=== PATIENT | male | born 1960 | race Two or more races ===

== ENCOUNTER 2022-03-21 05:57 | Outpatient (REF) | payer MEDICAID, SELFPAY | END 2022-03-21 05:58 | disposition home or self-care (01) | LOC: HO.HOSX 05:57 | PROVIDERS: Visit Provider Physician Assistant | DX: Z13.89 Encounter for screening for other disorder (principal) ==

== ENCOUNTER 2022-06-12 09:03 | Outpatient (REF) | payer MEDICAID, SELFPAY | END 2022-06-12 09:04 | disposition home or self-care (01) | LOC: HO.HOSX 09:03 | PROVIDERS: Visit Provider Physician Assistant | DX: Z13.89 Encounter for screening for other disorder (principal) ==

== ENCOUNTER 2025-01-06 14:54 | Outpatient (REF) | payer MEDICAID, SELFPAY ==
[2025-01-06 15:57] LABS: MANUAL DIFF FLAG NO
[2025-01-06 15:59] LABS: Hematocrit 45.7 % (42.0-52.0); Hemoglobin 15.1 g/dl (14.0-18.0); Imm Gran Abs Auto 0.04 X10*3/uL (0.00-0.03); Imm Gran Pct Auto 0.4 % (0.0-0.4); Lymphocytes Absolute Auto 2.5 X10*3/uL (1.2-4.9); Mean Corpuscular HGB Conc 33.0 g/dl (31.0-36.0); Mean Corpuscular Hemoglobin 31.2 pg (27.0-33.0); Mean Corpuscular Volume 94.4 fL (80.0-98.0); NRBC Abs Auto 0.000 X10*3/uL (0.0-0.012); NRBC Pct Auto 0.0 /100WBC (0.0-0.2); Platelet Count 100 X10*3/uL (160-400); Red Blood Count 4.84 X10*6/uL (4.60-5.80); White Blood Count 10.3 X10*3/uL (4.8-10.8)
[2025-01-06 16:21] LABS: Alanine Aminotransferase 14 U/L (0-40); Albumin Level 3.7 g/dL (3.5-5.0); Alkaline Phosphatase 96 U/L (39-117); Anion Gap 11 (12-20); Aspartate Amino Transferase 28 U/L (5-37); Blood Urea Nitrogen 14 mg/dL (9-16); Calcium 9.0 mg/dL (8.4-10.2); Carbon Dioxide 24 mmol/L (22-29); Chloride 108 mmol/L (96-108); Cholesterol 121 mg/dL (<200); Estimated Glomerular Filt Rate > 60; HDL Cholesterol 40 mg/dL (>40); Potassium 4.6 mmol/L (3.3-5.1); Sodium 138 mmol/L (135-145); Total Protein 7.7 g/dL (6.5-8.0); Triglycerides 45 mg/dL (<150)
--- OUTSIDE RECORDS SUMMARY | 2025-01-06 20:23 | XMS_ITS | Encounter Summary ---
Author Organization [facility] Address [address] [place] [address] Phone Care Team Providers Care Disability Coordinator Name Role Phone Unknown, Unknown Primary Care Provider Jere Nelson MD Primary Care Prov ider Encounter Details Date Type Department Care Team (Late st Contact Info) Description 08/01/2017 Procedure Pass [facility] [address] [place] [address] Social History Tobacco Use Types Packs/Day Years Used Date Smoking Tobacco: Light Smoker Smokeless Tobacco: Never Alcohol Use Standard Drinks/Week Comments No 0 (1 standard drink = 0.6 oz pur e alcohol) Sex and Gender Information Value Date Recorded Sex Assigned at Not on file Legal Sex Male 3:57 PM EDT Gender Identity Not on file Sexual Orientation Not on file documented as of this encounter Plan of Treatment Not on file documented as of this encounter Visit Diagnoses Not on filedocumented in this encounter Care Teams Disability Coordinator Relationship Specialty Start Date End Date Unknown, Unknown, PCP - General 06/09/17 02/27/22 Jere Pope MD [address] [place] [address] PCP - General Internal Medicine 02/28/22 documented as of this encounter Additional Source Comments The information contained in this document represents components of the legal health record. It is not the complete legal health record.[facility]
--- OUTSIDE RECORDS SUMMARY | 2025-01-06 20:23 | XMS_ITS | Encounter Summary ---
Author Organization [facility] Address [address] [place] [address] Phone Care Team Providers Care Glove Turner And Former Automatic Name Role Phone Unknown, Unknown Primary Care Provider Jere Nelson MD Primary Care Prov ider Encounter Details Date Type Department Care Team (Late st Contact Info) Description 09/12/2017 Procedure Pass [facility] [address] [place] [address] Social History Tobacco Use Types Packs/Day Years [...] on filedocumented in this encounter Care Teams Glove Turner And Former Automatic Relationship Specialty Start Date End Date Unknown, Unknown, PCP - General 06/09/17 02/27/22 Jere Pope MD [address] [place] [address] PCP - General Internal Medicine 02/28/22 documented as of this encounter Additional Source Comments The information contained in this document represents components of the legal health record. It is not the complete legal health record.[facility]
--- OUTSIDE RECORDS SUMMARY | 2025-01-06 20:23 | XMS_ITS | Data Portability ---
Author Organization [facility], Main Office Address [address] [place] [address] Care Team Providers Care Electric Meter Tester Helper Name Role Phone [facility] OTHER [facility] Primary Care Provider Assessment No assessment recorded. Plan of Treatment Reminders Order Date Submit Date Provider Last Modified By Organization Details Last Modified Time Details Appointments None recorded. Lab None recorded. Referral None recorded. Procedures None recorded. Surgeries None recorded. Imaging None recorded. Medication Orders Suboxone 4 mg-1 mg sublingual film 2022 023 [facility], [address], [address], [place], [address], 3 15:35:46 Patient TargetsNo targets recorded. Patient InstructionsNo instructions recorded. Reason for Referral None Reported. 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 179194121 Active 2022 Brady Constantino MD [address], [address], [place], [address], [facility] 3 08:43:09 Hypertensive disorder 43162436 Active 2022 Brady Constantino MD [address], [address], [place], [address], [facility] 3 08:43:17 Recurrent falls 787428691 Active 2022 Brady Constantino MD [address], [address], [place], [address], [facility] 3 08:43:23 Gastroesophage al reflux disease without esophagitis 556457795 Active 2022 Brady Constantino MD [address], [address], [place], [address], [facility] 3 08:43:36 History of alcoholism 894549131 Active 2022 Brady Constantino MD [address], [address], [place], [address], [facility] 3 08:43:56 Peripheral vascular disease 874548954 Active 2022 Brady Constantino MD [address], [address], [place], [address], [facility] 3 08:44:02 Chronic hepatitis C 902974250 Active 2022 Brady Constantino MD [address], [address], [place], [address], [facility] 3 08:44:10 Primary insomnia 2125977 Active 2022 Brady Constantino MD [address], [address], [place], [address], [facility] 3 08:48:55 Unsheltered homelessness Active 2022 Brady Constantino MD [address], [address], [place], [address], [facility] 3 08:56:59 Tobacco user 814320702 Active 2022 Brady Constantino MD [address], [place], [address], [facility] 3 08:57:08 Problem Notes None recorded. Medical Equipment None Reported. Allergies Allergen ID Allergen Name Allergen Category Reaction Reaction Severity Criticality Documentation Date Start Date Code Code System Note Provider Name and Address Organization Details Recorded Time 59305 Product containin g penicilli n (product) medicatio n Not available Not available Not available 07/17/2022 92062 8001 SNOMED Brady Constantino MD [address], [address], [place], [address], [facility] 3 08:33:57 Medications Name Sig Start Date Stop Date Status Note LastModified by Organization Details LastModified Time Suboxone 4 mg-[address] 1 film every day by sublingual route. 2022 active Not Available Not Available Not Avai lable Vitals Date Recorded Oxygen saturation Heart rate Respiratory rate Body temperature Systolic And Diastolic Provider Name and Address Organization Details Last Updated DateTime 3 96 % 76 /min 18 /min 97.3 [degF] 134/66 mm[Hg] KIANA Restrepo [address], [address], [place], [address], [facility] [employer] 3 11:55:06 Social History Question Answer Notes LastModified by Organizat ion Details LastModified Time Tobacco Smoking Status Current Every Day Smoker Brady Constantino MD [address], [address], [place], [address], [employer] 07/17/2022 08:56:33 Do You Have An Advance Directive? No Information not available 07/17/2022 What Is Your Code Status? Full Code Information not available 07/17/2022 How Much Tobacco Do You Smoke? 0.5 PPD Information not available 07/17/2022 Sex: Unknown Functional Status Question Answer Note LastModified by Organization D etails LastModified Time What is your level of alcohol consumption? None hx ETOH Information not available 07/17/2022 Mental Status None recorded. Family History Nothing Reported Notes:N/C Medical History No medical history recorded. Immunizations Vaccine Type Date Status Note Provider Nam e and Address Organization Details Recorded Time Tdap 08/05/2016 completed Daniela leyva, [facility] [employer] 05/21/2023 11:17:13 Past Encounters Encounter ID Performer Location Encounter Start Date Encounter Closed Date Diagnosis/Indication Diagnosis SNOMED-CT Code Diagnosis ICD10 Code Diagnosis IMO Codes Diagnosis Note [id number] Brady Constantino MD [facility] on [address] [place] [address] 07/17/2022 08:33:05 07/24/2022 10:46:05 Fracture of neck of femur 4390120 S72.041D see HPIright femoral neck fracture s/p ORIFloveno x for DVT prophylaxi sfollow ortho recs and update with concernsmo nitor for pain controlgab apentin 100 mg tidPT OT Eval and treat Harmful pa ttern of use of multiple substances 727349904 F19.10 substance abuse counseling at [facility] cial work to be involved to assist with services in communityn ow onsuboxone 4-1 mg qday Hypertensive disorder 38 538285 I10 coreg 3.125 mg bidmonitor bp and need to adjust Recurrent falls 33463196 2 R29.6 see aboveunsur e of baselineth erapy to followmoni tor fall risk Gastroesop hageal reflux disease without esophagitis 062753889 K21.9 omeprazole 20 mg qdmonitor for sx relief History of alcoholism 16 4385790 F10.21 sober x 20 years by hxadded to PMH Peripheral vascular disease 319176797 I73.89 carrying dxadded to PMH Chronic hepatitis C 1283 18867 B18.2 carrying dxadded to PMHunsure of tx hx can request prior notes Primary insomnia 4755461 F51.01 temazepam 15 mg qhscontinu vianney-kit script written for ativan till available Unsheltere d homelessness 7764981867 35708 Z59.02 may be barrier to discharges ocial work to be involved Tobacco user 691909563 Z 72.0 encourage quittingni cotine replacemen t prn [id number] Brady Constantino MD [facility] on [address] [place] [address] 07/24/2022 14:18:41 07/29/2022 16:11:02 Fracture of neck of femur 8660169 S72.041D see HPIright femoral neck fracture s/p ORIFloveno x for DVT prophylaxi sfollow ortho recs and update with concernsmo nitor for pain control currently well controlled gabapentin 100 mg tidcontinu es with therapy Harmful pa ttern of use of multiple substances 562469330 F19.10 suboxone 4-1 mg qdaystable on this dosewill need to establish with facility in community prior to discharge Primary insomnia 6289455 F51.01 temazepam 15 mg qhsstable Unsheltere d homelessness 9076695813 98732 Z59.02 may be barrier to discharges ocial work to involvedse e above [id number] KIANA Restrepo [facility] [address] [place] [address] 07/29/2022 08:32:07 07/31/2022 10:53:06 Fracture of neck of femur 8597872 S72.041D right femoral neck fracture s/p ORIFloveno x 40 mg sq qd for DVT prophylaxi sketorolac 10 mg q 6 hrs prngabapen tin 100 mg tidcontinu e PT OTmonitor for pain relief, incisionf/ u with ortho Harmful pa ttern of use of multiple substances 840394754 F19.10 [facility] counseling at facilityso cial worker involved, will need services once dischargec ontinue suboxone 4-1 mg qd Hypertensive disorder 38 944786 I10 bp normalcore g 3.125 mg bidmonitor bp, adjust dose prn Recurrent falls 77316372 2 R29.6 see aboveunsur e of baselineth erapy to followmoni tor fall risk Gastroesop hageal reflux disease without esophagitis 680158692 K21.9 omeprazole 20 mg qdmonitor for sxs History of alcoholism 16 5807763 F10.21 sober x 20 years by hxadded to PMH Primary insomnia 9525779 F51.01 temazepam 15 mg qhsadd melatonin 6 mg qhsmonitor for effect Unsheltere d homelessness 6903267524 55563 Z59.02 may be barrier to discharges ocial worker involved Tobacco user 787393053 Z 72.0 encourage quitting now with hematurian icotine replacemen t prn Carmelo hematuria 86469272 5 R31.0 explained to pt that sometimes blood in urine is a symptom of bladder cancersend ing out [facility] C & Srefer to urologist once report is back [id number] Brady Constantino MD [facility] [address] [place] [address] 08/02/2022 14:16:55 08/05/2022 16:24:46 Fracture of neck of femur 5996340 S72.041D see HPIright femoral neck fracture s/p ORIFnow improved and healingWBA T, continues with therapyfol low ortho recs and update with concerns Harmful pa ttern of use of multiple substances 344168064 F19.10 suboxone 4-1 mg qdaystable on this dosewill establish with facility in community prior to discharge Unsheltere d homelessness 4650933242 97953 Z59.02 patient plan now to rent room in [place] while looking for permanent housing [id number] Brady Constantino MD [facility] on [address] [place] [address] 08/07/2022 14:00:38 08/21/2022 08:24:48 Fracture of neck of femur 5247589 S72.041D see HPIright femoral neck fracture s/p ORIFd/c lovenoxnow progressin g towards discharge on 08/09 Harmful pa ttern of use of multiple substances 087398700 F19.10 suboxone 4-1 mg q dayto establish with suboxone clinic prior to discharge Hypertensive disorder 38 921307 I10 coreg 3.125 mg bidcontinu ed Recurrent falls 46815093 2 R29.6 remind patient importance of utilizing walker Gastroesop hageal reflux disease without esophagitis 914325584 K21.9 omeprazole 20 mg qdstable Primary insomnia 0988006 F51.01 temazepam 15 mg qhscontinu ed Unsheltere d homelessness 5467682351 54405 Z59.02 now to rent room in [place] [id number] KIANA Restrepo [facility] on [address] [place] [address] 08/08/2022 08:51:51 08/21/2022 08:41:53 Fracture of neck of femur 5877102 S72.041D right femoral neck fracture s/p ORIFwalkin g independen tly with walkeroff lovenox nowf/u with ortho Harmful pa ttern of use of multiple substances 127039285 F19.10 suboxone 4-1 mg q dayfollow up with suboxone provider once pt is discharged Hypertensive disorder 38 105058 I10 coreg 3.125 mg bidmonitor bp Recurrent falls 15269824 2 R29.6 reminded patient importance of utilizing walkercont inue PT OT Gastroesop hageal reflux disease without esophagitis 118702496 K21.9 omeprazole 20 mg qdmonitor for sxs Primary insomnia 1225792 F51.01 temazepam 15 mg qhsmonitor for effect Carmelo hematuria 90198836 5 R31.0 explained to pt that sometimes blood in urine is a symptom of bladder cancerUA also showed RBCspt will need to see urologist once he is discharged [id number] Brady Constantino MD [facility] on [address] [place] [address] 08/09/2022 11:49:26 08/21/2022 08:49:40 Fracture of neck of femur 7995611 S72.041D see HPIright femoral neck fracture s/p ORIFunsafe discharge as no address given to continue servicespa tient leaving AMA Harmful pa ttern of use of multiple substances 667203435 F19.10 suboxone 4-1 mg q dayto establish with suboxone clinicwill allow to leave with 3 doses to see patient through weekend and can establish with facility Hypertensive disorder 38 045811 I10 coreg 3.125 mg bidcontinu ed Recurrent falls 55911416 2 R29.6 impulsives hould continue with out patient therapy Gastroesop hageal reflux disease without esophagitis 173051503 K21.9 omeprazole 20 mg qdcontinue d Primary insomnia 1213028 F51.01 temazepam 15 mg qhscontinu ed Unsheltere d homelessness 0083296337 56388 Z59.02 see HPI Health Concerns Section Related Observation LastModified by Organization Detai ls LastModified Time None Recorded Concern Status LastModified by Organization Details LastModified Time None Recorded Advance Directives Directive N: Payers Insurance Date Sequence Insurance Name Policy Number Policy Schultz Covered Member ID Schultz Member ID Guarantor Name 07/25/2023 1 [place]: [employer] Sheldon Short [id number] Sheldon Short Notes Date Note Type Note Provider Name and Address Organization Details Recorded Time 07/29/2022 text/html pt seen for acute visit. pt noted blood in urine, told nurse who has not observed this. pt is an active tobacco smoker and this is not the first time he has noticed blood in his urine. 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 pt also c/o insomnia. currently on temazepam 15 mg qhs. continues working with rehab, is [facility]. pt was admit from hospital presenting after fall with c/o hip pain. Imaging postive for right femoral neck fracture. Eval by ortho and underwent ORIF. Now on lovenox for DVT prophylaxis. Complicated by active polysubstance abuse, of note patient started on suboxone in hospital. KIANA Restrepo [address] [facility], [address], [place], [address], [facility] 07/29/2022 12:21:35 08/02/2022 text/html Patient is a 62 yo male resident seen for acute rounding. Patient was initially admit from hospital presenting after fall with c/o hip pain. Imaging postive for right femoral neck fracture. Eval by ortho and underwent ORIF. Now on lovenox for DVT prophylaxis. Complicated by active polysubstance abuse, of note patient started on suboxone in hospital. Continues to improve, seen by ortho today, now left hip fx healed and right femoral neck fracture healing, cleared for WBAT Brady Constantino MD [address] [facility], [address], [place], [address], [facility] 08/02/2022 14:22:02 08/07/2022 text/html Patient is a 62 yo male resident seen for acute rounding. Patient was initially admit from hospital presenting after fall with c/o hip pain. Imaging postive for right femoral neck fracture. Eval by ortho and underwent ORIF. Complicated by active polysubstance abuse, of note patient started on suboxone in hospital. Patient has done well at facility now progressing towards discharge. Patient was homeless on admission now will renting room in [place] with assist from his son. Patient ambulates with walker independently now Brady Constantino MD [address] [facility], [address], [place], [address], [facility] 08/07/2022 14:08:40 08/08/2022 text/html pt seen for acute visit. pt is doing very well, son helped him get a room in [place] which pt says is next door to his suboxone clinic. pt is walking with cane and sometimes walker both independently. saw surgeon recently and have sutures removed. pt has no c/o pain, is expected to discharge tomorrow. Pt was initially admit from hospital presenting after fall with c/o hip pain. Imaging postive for right femoral neck fracture. Eval by ortho and underwent ORIF. Complicated by active polysubstance abuse, of note patient started on suboxone in hospital. KIANA Restrepo [address] [facility], [address], [place], [address], [facility] 08/09/2022 12:15:31 08/09/2022 text/html Patient is a 62 yo male resident seen for acute rounding. Patient was initially admit from hospital presenting after fall with c/o hip pain. Imaging postive for right femoral neck fracture. Eval by ortho and underwent ORIF. Complicated by active polysubstance abuse, of note patient started on suboxone in hospital. Patient has improved with therapy and is progressing to discharge if housing in place to allow for continued services. Patient is leaving today AMA as address he provided to does not exist. Counseled to stay however patient is leaving. Will allow patient to take medications including 3 days dosing of suboxone as this is friday so patient can establish with clinic. Brady Constantino MD [address] [facility], [address], [place], [address], [facility] [employer] 08/09/2022 11:54:54
--- OUTSIDE RECORDS SUMMARY | 2025-01-06 20:23 | XMS_ITS | Encounter Summary ---
Author Organization [facility] Address [address] [place] [address] Phone Care Team Providers Care Jukebox Route Driver Name Role Phone Unknown, Unknown Primary Care Provider Jere Nelson MD Primary Care Prov ider Encounter Details Date Type Department Care Team (Late st Contact Info) Description 06/20/2017 Procedure Pass [facility] Interventional Radiology [address] [place] [address] Social History Tobacco Use Types Packs/Day Years [...] on filedocumented in this encounter Care Teams Jukebox Route Driver Relationship Specialty Start Date End Date Unknown, Unknown, PCP - General 06/09/17 02/27/22 Jere Pope MD [address] [place] [address] PCP - General Internal Medicine 02/28/22 documented as of this encounter Additional Source Comments The information contained in this document represents components of the legal health record. It is not the complete legal health record.[facility]
--- OUTSIDE RECORDS SUMMARY | 2025-01-06 20:23 | XMS_ITS | Clinical Summary ---
Author Organization [facility] Address [address] [facility] [address] [address] [place] [address] Phone Care Team Providers Care Plumbing Designer Name Role Phone Jere Pope MD Primary Care Prov ider Allergies Active Allergy Reactions Criticality Noted Date Comments Penicillins Rash Low 06/11/2017 Medications atorvastatin (LIPITOR) 20 MG tablet Take 20 mg by mouth daily. Active aspirin 81 mg chewable tablet Take 81 mg by mouth daily. Active amlodipine besylate (AMLODIPINE ORAL) Take 10 mg by mouth daily. Active amitriptyline (ELAVIL) 25 MG tablet Take 25 mg by mouth nightly. Active vorapaxar (ZONTIVITY) 2.08 mg tablet Take 2.08 mg by mouth daily. Active oxyCODONE-aceta minophen (PERCOCET) 10-325 mg per tablet Take 2 tablets by mouth every 6 (six) hours as needed. Active Social History Tobacco Use Types Packs/Day Years Used Date Smoking Tobacco: Light Smoker Smokeless Tobacco: Never Alcohol Use Standard Drinks/Week Comments No 0 (1 standard drink = 0.6 oz pur e alcohol) Education Answer Date Recorded Are you interested in more education? Not on mayco e 06/14/2022 Are you concerned about learning? Not on file 06/14/2022 No 06/14/2022 No 06/14/2022 Digital Access Answer Date Recorded No 07/16/2022 No 07/16/2022 No 07/16/2022 Reliable internet access at home? Not on file 07/16/2022 Device with a working camera? Not on file Sex and Gender Information Value Date Recorded Sex Assigned at Not on file Legal Sex Male 3:57 PM EDT Gender Identity Not on file Sexual Orientation Not on file Last Filed Vital Signs Vital Sign Reading Time Taken Comments Blood Pressure - - Pulse - - Temperature - - Respiratory Rate - - Oxygen Saturation - - Inhaled Oxygen Concentration - - Weight 112.5 kg (248 lb) 06/11/2017 11:52 AM EDT Height 170.2 cm (5' 7 ) 06/11/2017 11:52 AM EDT Body Mass Index 38.84 06/11/2017 11:52 AM EDT Plan of Treatment Health Maintenance Due Date Last Done Comments LIPID PANEL 1962 DEPRESSION SCREENING 1974 SMOKING Hx and SMOKELESS TOB ACCO SCREENING 1975 HEPATITIS C SCREENING 1980 HIV ONE-TIME SCREENING (18-6 5 YEARS) 1980 PNEUMOCOCCAL VACCINES (50+ y ears) (1 of 2 - PCV) 1981 COLOGUARD 2007 COLONOSCOPY 2007 COLORECTAL CANCER SCREENING 2007 FIT TEST 2007 FOBT 2007 SIGMOIDOSCOPY 2007 VIRTUAL COLONOSCOPY 2007 ZOSTER VACCINES (1 of 2) 2012 INFLUENZA VACCINE (#1) 2024 02/03/2017 COVID-19 VACCINE (1 - 2024-2 6 season) 2024 Adult Td,Tdap Booster 08/05/2026 08/05/2016 RSV VACCINE (1 - 1-dose 75+ series) 2037 HEPATITIS A VACCINES Aged Out No long er eligible based on patient's age to complete this topic HIB VACCINES Aged Out No longer eligi ble based on patient's age to complete this topic MENINGOCOCCAL VACCINES (ACWY) Aged Out No longer eligible based on patient's age to complete this topic MENINGOCOCCAL VACCINES (B) Aged Out N o longer eligible based on patient's age to complete this topic Medical Devices Not on file Insurance [facility] C3 ACO C3 ACO C3 ACO C3 ACO C3 ACO C3 ACO C3 ACO C3 ACO [facility] C3 ACO Care Teams Plumbing Designer Relationship Specialty Start Date End Date Jere Pope MD [address] [place] [id number] PCP - General Internal Medicine 02/28/22 Additional Source Comments The information contained in this document represents components of the legal health record. It is not the complete legal health record.[facility]
[2025-01-10 15:00] LABS: HCV Log PCR <1.18 NOT DETECTED Log IU/mL (NOT DETECTED); HepC Viral Load <15 NOT DETECTED IU/mL (NOT DETECTED)
== END 2025-01-06 14:55 | disposition home or self-care (01) ==
LOC: HO.HHCL 14:54
PROVIDERS: Family Medicine; PCP Internal Medicine; Visit Provider Internal Medicine
DX: B18.2 Chronic viral hepatitis C (principal); I10 Essential (primary) hypertension
CPT/HCPCS: 36415; 80053; 80061; 82248; 84443; 85025; 87522